=== PATIENT | female | born 1950 | race Caucasian/White ===

== ENCOUNTER 2016-05-19 00:48 | Emergency (ER) | payer MEDICARE ==
[2016-05-19] MEDS ORDERED: ACETAMINOPHEN 325 MG TABLET PO ONE (01:32)
[2016-05-19] MEDS ORDERED: cloNIDine HCL 0.1 MG TABLET PO ONE (01:32)
[2016-05-19 01:40] LABS: BASOPHIL# 0.1 X 10^3uL (0.0-0.1); EOSINOPHILS 3.4 % (0.0-6.0); EOSINOPHILS# 0.3 X 10^3uL (0.0-0.4); HEMOGLOBIN 13.4 g/dL (12.0-16.0); LYMPHOCYTES 23.1 % (20.0-40.0); LYMPHOCYTES# 1.8 X 10^3uL (0.8-3.8); MEAN CELL VOLUME 88.4 fL (80.0-100.0); MEAN CORPUS. HGB CONCENTRATION 33.4 g/dL (32.0-36.0); MEAN CORPUSCULAR HEMOGLOBIN 29.6 pg (29.0-35.0); MEAN PLATELET VOLUME 8.5 fL (7.4-10.4); MONOCYTES 12.5 % (2.0-10.0); NEUTROPHILS# 4.7 X 10^3uL (2.6-6.7); PLATELET COUNT 291 X 10^3uL (130-440); RED BLOOD COUNT 4.53 X 10^6uL (4.20-6.10); RED CELL DISTRIBUTION WIDTH 13.4 % (11.5-14.5); WHITE BLOOD COUNT 7.9 X 10^3uL (3.9-10.7)
[2016-05-19 01:42] LABS: BLOOD UREA NITROGEN 20 mg/dL (7-17); CALCIUM 10.2 mg/dL (8.4-10.2); CHLORIDE 105 mmol/L (98-107); CREATININE 0.8 mg/dL (0.5-1.0); EST GLOMERULAR FILTRATION RATE > 60 mL/min; GLUCOSE 103 mg/dL (70-100); POTASSIUM 3.8 mmol/L (3.5-5.1); SODIUM 141 mmol/L (137-145)
--- NOTE | 2016-05-19 02:02 | CT REPORT ---
INDICATION: Headache. History of kidney cancer. COMPARISON: None. TECHNIQUE: Helical axial images were obtained through the head and soft tissue and bone reconstructio ns were created. FINDINGS: There is a 1.5 x 1.5 cm hyperdense lesion in the posterior paramedian portion of the left p arietal lobe. There is extensive surrounding vasogenic edema within the white matter. There is rightw issac midline shift of 6 mm. There is no hydrocephalus. There is some low-attenuation white matter with in the periventricular and subcortical region the right posterior frontal and parietal lobes, nonspec ific. Basal cisterns are clear. Calvarium is intact. Imaged paranasal sinuses and mastoid air cells are clear. IMPRESSION: 1. Intraparenchymal hemorrhage in the left parietal lobe measuring 1.5 x 1.5 cm with extensive surrou nding vasogenic edema. Given the history of renal cell carcinoma, this is highly concerning for a hem orrhagic metastatic lesion. Further evaluation with an MRI of the brain with and without contrast is suggested. 2. Rightward midline shift of 6 mm. No hydrocephalus. Critical results were discussed with Dr. Stewart at 2:00 AM 05/19/2016. Final Electronic Signature: This report was electronically signed by Ahsan Ashby MD on 05/19/2016 2 :00 AM. [email or web address] /
[2016-05-19 02:09] LABS: ERYTHROCYTE SEDIMENTATION RATE 10 MM/HR (0-20)
[2016-05-19] MEDS ORDERED: NS IV ONE (02:31)
[2016-05-19] MEDS ORDERED: NICARDIPINE IV ONE (02:31)
[2016-05-19] MEDS ORDERED: DEXAMETHASONE 10 MG/ML VIAL ONE (02:41)
[2016-05-19] MEDS ORDERED: LORazepam 0.5 MG TABLET ONE (03:09)
--- NOTE | 2016-05-19 03:55 | ER NURSING DOCUMENTATION ---
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 She was seen by yue yesterday and prescribed Sumatriptan. Pt took that this evening and that did not help the headache. No photophobia. PT states she had renal carcinoma last August and her kidney was removed. Transition of care: Home. 00:57 Method Of Arrival: Walk In Triage Assessment: 01:01 Headache History: The patient has had previous headaches and this one is similar to previous episodes. General: Appears uncomfortable, Behavior is cooperative. Pain: Complains of pain in forehead, left hoahaoism, left base of the skull, right hoahaoism and right base of the skull Pain currently is 8 out of 10 on a pain scale. Quality of pain is described as pressure, Pain began 1 week ago Also complains of Sinus pressure and pressure on the back of her head. EENT: Oral mucosa is dry. Neuro: Level of Consciousness is awake, alert, obeys commands, Oriented to person, place, time, event. Neuro: Client Services Vice President are equal bilaterally Moves all extremities. Gait is steady, Speech is normal, Facial symmetry appears normal. Cardiovascular: Capillary refill < 3 seconds. Respiratory: Airway is patent. GI: Denies nausea. Derm: Skin is intact, is healthy with good turgor. Historical: - Allergies: Keflex; - Home Meds: 1. sumatriptan succinate 50 mg oral tab 1 tab once with fluids as early as possible after the onset of a migraine attack;may repeat after 2 hours if headache returns, not to exceed 200mg in 24hrs 2. Vitamin C 500 mg oral tab 3. irbesartan 150 mg oral tab 1 tab once daily 4. aspirin 81 mg oral tab 1 tab once daily 5. prednisone 10 mg oral tab once daily - PMHx: ACUTE SCIATICA; OSTEOARTHRITIS; HEMORRHOIDS; CONSTIPATION; Hypertension; MIGRAINES; THYROID GOITER; HYPERLIPIDEMIA; RENAL CARCINOMA; - PSHx: LEFT TOTAL NEPHRECTOMY 2016; LAMINECTOMY, LUMBAR; - Tetanus: < 10 years. - Ebola Screening: : Patient negative for fever greater than or equal to 101.5 degrees Fahrenheit, and additional compatible Ebola Virus Disease symptoms. - Immunization history: Flu Vaccine < 1 year. - Social history: Smoking status: Patient states was never smoker of tobacco. Screenin:03 Infectious Disease Risk None. Abuse screen: Denies threats or abuse. Denies injuries rh from another. Nutritional screening: No deficits noted. Assessment: 01:03 See Triage Assessment done by same RN. 02:00 Reassessment: HOB lowered to 20 degree angle. rh 03:08 Pain: Denies pain. Neuro: Level of Consciousness is awake, alert, obeys commands, rh Oriented to person, place, time, event, Speech is normal, Facial symmetry appears normal, Pupils are PERRLA. 03:22 Reassessment: PT's Jose will ride down in the ambulance and leave car at [facility]. PT's belongings going with. . Vital Signs: 01:00 BP 179 / 101; Pulse 90; Resp 17; Temp 97.6(O); Pulse Ox 94% on R/A; Weight 62.6 kg; rh Height 5 ft. 6 in. (167.64 cm); Pain 8/10; 01:30 BP 199 / 89; Pulse 101; Resp 16; Pulse Ox 95% on R/A; rh 02:05 BP 190 / 107; Pulse 98; Resp 16; Pulse Ox 96% on R/A; rh 02:46 BP 184 / 88; Pulse 105; Resp 17; Pulse Ox 95% on R/A; rh 03:04 BP 156 / 87; Pulse 104; Resp 18; Pulse Ox 96% on R/A; rh 03:11 BP 152 / 92; Pulse 102; Pulse Ox 96% on R/A; Pain 0/10; rh 03:15 BP 130 / 90; Pulse 102; Pulse Ox 95% on R/A; Pain 0/10; rh 03:38 BP 158 / 85; Pulse 101; Resp 16; Pulse Ox 95% on R/A; Pain 0/10; rh 01:00 Body Mass Index 22.27 (62.60 kg, 167.64 cm) rh [place] Coma Score: 01:00 Eye Response: spontaneous(4). Verbal Response: oriented(5). Motor Response: obeys rh commands(6). Total: 15. 02:00 Eye Response: spontaneous(4). Verbal Response: oriented(5). Motor Response: obeys rh commands(6). Total: 15. 02:44 Eye Response: spontaneous(4). Verbal Response: oriented(5). Motor Response: obeys cd commands(6). Total: 15. 02:47 Eye Response: spontaneous(4). Verbal Response: oriented(5). Motor Response: obeys cd commands(6). Total: 15. 03:00 Eye Response: spontaneous(4). Verbal Response: oriented(5). Motor Response: obeys rh commands(6). Total: 15. ED Course: 00:49 Patient arrived in ED. ma1 00:49 Kaity Liu MD is Private Physician. ma1 00:49 Alix Levin is Primary Nurse. rh 00:49 Triage completed. rh 00:55 Notified ED Physician of patient's arrival and chief complaint. Dr. Stewart notified. rh 01:03 Valuables Remains with patient Patient has correct armband on for positive rh identification. Bed in low position. Call light in reach. Side rails up X 1. Family accompanied patient. 01:08 Andrew Stewart MD is Attending Physician. cd 01:[address] hz 01:[address]. hz Administered Medications: 01:31 Drug: NS 0.9% 1000 ml; Route: IV; Rate: bolus; Site: right antecubital; fc 03:10 Follow up: IV Status: Completed infusion; IV Intake: 750ml rh 01:31 Drug: cloNIDine 0.1 mg; Route: PO; fc 02:01 Follow up: Response: No change in condition rh 01:31 Drug: Tylenol 975 mg; Route: PO; fc 02:01 Follow up: Response: Pain is decreased rh 02:40 Drug: Decadron 10 mg IVP - Dexamethasone 10 mg; Route: IVP; Site: right antecubital; rh 03:03 Follow up: Response: No adverse reaction rh 02:46 Drug: CardENE 5 mg/h; Route: IV; Rate: 5 calculated rate; Site: right antecubital; rh 03:03 Follow up: IV Status: Completed infusion rh 02:59 Drug: Ativan 0.5 mg; Route: PO; rh 03:13 Follow up: Response: Anxiety decreased rh 03:04 Drug: CardENE 2.5 mg/h; Route: IV; Rate: calculated rate; Site: right antecubital; rh 03:13 Follow up: IV Status: Completed infusion rh Intake: 03:10 IV: 750ml; Total: 750ml. rh Outcome: 02:55 ER care complete, transfer ordered by MD. rodriguez 03:54 Transferred: Patient will be transferred to: [facility]. Facility rh Acceptance Time: May 19, 2016 at 02:45 Patient's face sheet was faxed to accepting facility. Face Sheet included patient's name, address, age, gender, contact information and insurance information. Patient will be transported by: [facility] ground. Report called to: [facility] ROOM [id number] Nurse and Physician Charting and Notes were sent to Accepting Facility. All tests and/or procedures with results, if applicable, were sent to accepting facility. 03:54 Condition: stable 03:54 Discharge Assessment: Patient awake, alert and oriented x 3. No cognitive and/or functional deficits noted. Patient verbalized understanding of disposition instructions. 03:54 Instructed on need for transfer 03:55 Patient left the ED. Signatures: Andrew Stewart MD MD cd Hofsess, Rachel rh collins, floyd fc Zolnowski, Heather hz Addison, Melissa ma1
--- NOTE | 2016-05-19 03:55 | ER PHYSICIAN DOCUMENTATION ---
Physician Documentation [facility] Name:Trang Aguilar Age:66 yrs Sex:Female :1950 Arrival Date:05/19/2016 Time:00:48 Bed1 Private MD:Kaity Liu ED, Chris Disposition: 05/19/16 02:55 Transfer ordered to [facility]. Diagnosis are Intracranial Bleed: Intracerebral - : 2nd to Brain Metastasis, Cephalgia. - Reason for transfer: Specialty. - Accepting physician is Dr. Andrew Michelle MD, [facility] Neurologist. - Condition is Serious. - Problem is new. - Symptoms have improved. COBRA Form completed? Yes Transfer - Mode of Transportation Ambulance HPI: 05/19 01:00 This 66 yrs old Female presents to ER via Walk In with complaints of Headache.cd 01:00 The patient complains of pain to the forehead, left ear, right voodoo, left voodoo, cd left occipital area and left base of the skull. The patient describes the headache as constant, a pressure, unrelenting. Onset: The symptoms/episode began/occurred gradually, 1 month(s) ago, and became worse 7 day(s) ago. Associated signs and symptoms: Pertinent positives: cervical muscle pain, Pertinent negatives: altered mental status, dizziness, fever, nausea, sinus congestion, sinus tenderness, vision changes, vision loss, vomiting. Severity of symptoms: At its worst the pain was moderate, in the emergency department the pain is unchanged. Headache History: The patient has had previous headaches and this one is different than previous episodes. Risk factors for subarachnoid hemhorrage: hypertension. The patient has been recently seen by a physician: the patient's primary care provider, Dr. Liu, Internal Medicine, an lead generator, at a clinic, yesterday, with similar presenting complaints, and apparently given a diagnosis of Possible Migraine Headache. Given Imitrex which the patient took twice this evening two hours apart and it made the patient's headache worse. 02:37 The patient has a history of Stage IV Renal Cancer and underwent a Left Nephrectomy in cd August 2015. Her last CT Scan was in February 2016 of her chest and abdomen and was negative for cancer. She has not had a recent CT of the Brain.. Historical: - Allergies: Keflex; - Home Meds: 1. sumatriptan succinate 50 mg oral tab 1 tab once with fluids as early as possible after the onset of a migraine attack;may repeat after 2 hours if headache returns, not to exceed 200mg in 24hrs 2. Vitamin C 500 mg oral tab 3. irbesartan 150 mg oral tab 1 tab once daily 4. aspirin 81 mg oral tab 1 tab once daily 5. prednisone 10 mg oral tab once daily - PMHx: ACUTE SCIATICA; OSTEOARTHRITIS; HEMORRHOIDS; CONSTIPATION; Hypertension; MIGRAINES; THYROID GOITER; HYPERLIPIDEMIA; RENAL CARCINOMA; - PSHx: LEFT TOTAL NEPHRECTOMY 2016; LAMINECTOMY, LUMBAR; - Tetanus: < 10 years. - Ebola Screening: : Patient negative for fever greater than or equal to 101.5 degrees Fahrenheit, and additional compatible Ebola Virus Disease symptoms. - Immunization history: Flu Vaccine < 1 year. - Social history: Smoking status: Patient states was never smoker of tobacco. ROS: 02:40 Eyes: Negative for injury, pain, redness, discharge, blurry vision and loss of vision. cd Cardiovascular: Negative for chest pain, palpitations, edema and pleuritic pain. Respiratory: Negative for shortness of breath, dyspnea on exertion, cough, sputum production, wheezing, hemoptysis and pleuritic chest pain. Abdomen/GI: Negative for abdominal pain, nausea, vomiting, diarrhea, constipation, distension, melena, hematochezia and hematemesis. Back: Negative for injury, pain or muscle spasms. : Negative for injury, bleeding, discharge, dysuria, frequency, urgency and swelling. MS/Extremity: Negative for injury, deformity, edema, calf tenderness, pain or coldness. 02:40 Skin: Negative for injury, rash, itching and discoloration. cd 02:40 Constitutional: Positive for poor PO intake, Negative for chills, fever. 02:40 ENT: Positive for sinus congestion, Negative for sinus pain, sore throat. 02:40 Neck: Positive for pain at rest, Negative for stiffness, swelling. 02:40 Neuro: Positive for headache, Negative for altered mental status, dizziness, gait disturbance, hearing loss, numbness, seizure activity, speech changes, syncope, near syncope, tingling, visual changes, weakness. 02:40 All other systems are negative. Exam: 02:41 Eyes: Pupils: equal, round, and reactive to light and accomodation, Extraocular cd movements: intact throughout, Conjunctiva: normal. 02:41 ENT: TM's: are normal, Nose: is normal, Mouth: is normal, Posterior pharynx: is normal, Voice: is normal. Chest/axilla: Normal chest wall appearance and motion. Nontender with no deformity. No lesions are appreciated. Cardiovascular: Regular rate and rhythm with a normal S1 and S2. No gallops, murmurs, or rubs. Normal PMI, no JVD. No pulse deficits. Respiratory: Lungs have equal breath sounds bilaterally, clear to auscultation and percussion. No rales, rhonchi or wheezes noted. No increased work of breathing, no retractions or nasal flaring. Abdomen/GI: Soft, non-tender, with normal bowel sounds. No distension or tympany. No guarding or rebound. No evidence of tenderness throughout. Back: No spinal tenderness. No costovertebral tenderness. Full range of motion. Skin: Warm, dry with normal turgor. Normal color with no rashes, no lesions, and no evidence of cellulitis. 02:44 MS/ Extremity: Pulses equal, no cyanosis. Neurovascular intact. Full, normal range cd of motion. 02:44 Constitutional: The patient appears alert, awake, non-diaphoretic, non-toxic, well developed, well nourished, anxious, in obvious distress, moderately distressed. 02:44 Head/face: Basilar skull fracture findings: the patient does not have obvious signs of a basilar skull fracture, no Holly signs, no hemotympanum, no nasal drainage, no racoon eyes, Sinus tenderness, is not appreciated. 02:44 Neck: External neck: tenderness, that is mild, of the left mid cervical area, right mid cervical area, left trapezius and right trapezius, ROM/movement: is normal, is supple. 02:44 Neuro: Orientation: is normal, to person, place & time. Mentation: is normal, lucid, Memory: is normal, Cranial nerves: CN II- XII are normal as tested, Cerebellar function: unable to test, Right knee with arthritis, Motor: moves all fours, strength is 5/5 in all extremities, Sensation: is normal, no acute changes, Gait: is steady, seizure activity, is not displayed by the patient. Vital Signs: 01:00 BP 179 / 101; Pulse 90; Resp 17; Temp 97.6(O); Pulse Ox 94% on R/A; Weight 62.6 kg; rh Height 5 ft. 6 in. (167.64 cm); Pain 8/10; 01:30 BP 199 / 89; Pulse 101; Resp 16; Pulse Ox 95% on R/A; rh 02:05 BP 190 / 107; Pulse 98; Resp 16; Pulse Ox 96% on R/A; rh 02:46 BP 184 / 88; Pulse 105; Resp 17; Pulse Ox 95% on R/A; rh 03:04 BP 156 / 87; Pulse 104; Resp 18; Pulse Ox 96% on R/A; rh 03:11 BP 152 / 92; Pulse 102; Pulse Ox 96% on R/A; Pain 0/10; rh 03:15 BP 130 / 90; Pulse 102; Pulse Ox 95% on R/A; Pain 0/10; rh 03:38 BP 158 / 85; Pulse 101; Resp 16; Pulse Ox 95% on R/A; Pain 0/10; rh 01:00 Body Mass Index 22.27 (62.60 kg, 167.64 cm) rh [place] Coma Score: 01:00 Eye Response: spontaneous(4). Verbal Response: oriented(5). Motor Response: obeys commands(6). Total: 15. 02:00 Eye Response: spontaneous(4). Verbal Response: oriented(5). Motor Response: obeys commands(6). Total: 15. 02:44 Eye Response: spontaneous(4). Verbal Response: oriented(5). Motor Response: obeys commands(6). Total: 15. 02:47 Eye Response: spontaneous(4). Verbal Response: oriented(5). Motor Response: obeys cd commands(6). Total: 15. 03:00 Eye Response: spontaneous(4). Verbal Response: oriented(5). Motor Response: obeys commands(6). Total: 15. MDM: 01:08 Patient medically screened. cd 01:15 Differential diagnosis: cluster headache, hypertensive headache, intracerebral cd hemorrhage, meningitis, migraine, neoplasm, sinusitis, subarachnoid bleed, temporal arteritis, tension headache, vasomotor headache. Data interpreted: Pulse oximetry: on room air is 95 %. Interpretation: normal. 02:20 Data reviewed: vital signs, nurses notes, old medical records, lab test result(s), CBC, cd electrolytes, ESR, radiologic studies, CT scan, and as a result, I will *Transfer Patient initiate a consult, from a [facility] Neurologist, administer steroids, Decadron, Start Cardene IVPB for Hypertension Control to Systolic in the 160's. 02:42 Response to treatment: the patient's symptoms have mildly improved after treatment. cd Physician consultation: Andrew Michelle MD [facility] Neurologist was called at 02:30, was contacted at 02:38, regarding admission, to the ICU, consult, patient's condition, need to evaluate the patient as soon as possible, and will see patient in unit, shortly, later today, after a discussion of the case, a recommendation for transfer for higher level of care is made. 02:47 Neurological re-evaluation: normal neurological exam including cranial nerves, cd orientation, mentation, motor and sensory exam, cerebellar testing, GCS normal, and normal gait. 02:50 Counseling: I had a detailed discussion with the patient and/or guardian regarding: the cd historical points, exam findings, and any diagnostic results supporting the discharge/admit diagnosis, lab results, radiology results, the need to transfer to another facility, for higher level of care, [facility] does not immediately have the required specialist. 05/19 01:44 Order name: BASIC METABOLIC PANEL; Complete Time: 02:31 EDMS 05/19 02:29 Interpretation: Normal. 05/19 01:46 Order name: CBC AUTO DIF, MDIF/RMOR IF IND; Complete Time: 02:31 EDMS 05/19 02:29 Interpretation: Normal. 05/19 02:10 Order name: ERYTHROCYTE SEDIMENTATION RATE; Complete Time: 02:31 EDMS 05/19 02:31 Interpretation: Normal. 05/19 02:05 Order name: CAT SCAN; HEAD W/O CON [id number]; Complete Time: 02:31 EDMS 05/19 02:31 Interpretation: Abnormal: Hemorrhagic Brain mass / metastases with significant edema cd and 6 mm midline shift. See Report. Dispensed Medications: :31 Drug: NS 0.9% 1000 ml; Route: IV; Rate: bolus; Site: right antecubital; fc 03:10 Follow up: IV Status: Completed infusion; IV Intake: 750ml rh :31 Drug: cloNIDine 0.1 mg; Route: PO; 02:01 Follow up: Response: No change in condition rh 01:31 Drug: Tylenol 975 mg; Route: PO; fc 02:01 Follow up: Response: Pain is decreased rh 02:40 Drug: Decadron 10 mg IVP - Dexamethasone 10 mg; Route: IVP; Site: right antecubital; rh 03:03 Follow up: Response: No adverse reaction rh 02:46 Drug: CardENE 5 mg/h; Route: IV; Rate: 5 calculated rate; Site: right antecubital; rh 03:03 Follow up: IV Status: Completed infusion rh 02:59 Drug: Ativan 0.5 mg; Route: PO; rh 03:13 Follow up: Response: Anxiety decreased rh 03:04 Drug: CardENE 2.5 mg/h; Route: IV; Rate: calculated rate; Site: right antecubital; rh 03:13 Follow up: IV Status: Completed infusion rh Signatures: Andrew Stewart MD MD cd Hofsess, Rachel alberto jones
== END 2016-05-19 03:55 | disposition short-term general hospital (02) ==
LOC: ER 00:48
DX: I61.9 Nontraumatic intracerebral hemorrhage, unspecified (principal); C79.31 Secondary malignant neoplasm of brain; R51 Headache; M54.2 Cervicalgia; I10 Essential (primary) hypertension; R40.2413 Glasgow coma scale score 13-15, at hospital admission; Z85.528 Personal history of other malignant neoplasm of kidney; J34.89 Other specified disorders of nose and nasal sinuses; Z79.899 Other long term (current) drug therapy; Z99.89 Dependence on other enabling machines and devices; Z74.3 Need for continuous supervision
CPT/HCPCS: 70450; 80048; 85025; 85651; 86140; 99285; A0425; A0427; J1100

== ENCOUNTER 2016-08-13 00:20 | Emergency (ER) | payer MEDICARE ==
[2016-08-13] MEDS ORDERED: LORazepam 1 MG TABLET ONE (00:51)
--- NOTE | 2016-08-13 00:56 | CT REPORT ---
HISTORY: Dizziness, history of brain cancer COMPARISON: None. TECHNIQUE: Axial non-contrast images obtained from skull vertex through foramen magnum. Dose reduction technique was utilized. FINDINGS: There is some encephalomalacia and postsurgical changes in the left parieto-occipital region likely r eflecting postsurgical changes from prior mass resection. There is age appropriate atrophy. There is decreased attenuation in the periventricular white matter , consistent with chronic small vessel ischemic change. There is no hemorrhage. There is no hydroce phalus. No mass lesion is identified. Saravia white differentiation adequate, there is no CT evidence of acute infarction. No midline shift is identified. The paranasal sinuses are clear. There are durga nges from prior left posterior parietal bone craniotomy. IMPRESSION: 1. Age appropriate atrophy and chronic small vessel ischemic changes, no acute intracranial abnormal ity. 2. Postsurgical changes in the left parieto-occipital region from prior tumor resection. 3. If there is clinical concern for residual tumor, consider further evaluation with MRI or contrast -enhanced CT head. COMMUNICATION: Dr. Halima Weiss discussed the pertinent results with Dr. Ayala 04/2016 12:54 AM. Write down read b ack confirmed as per hospital policy. Final Electronic Signature: This report was electronically signed by Nikita Weiss MD on 12:54 AM. [email or web address] /
--- NOTE | 2016-08-13 01:18 | ER NURSING DOCUMENTATION ---
Nurse's Notes [facility] Name:Trang Aguilar Age:66 yrs Sex:Female :1950 Arrival Date:08/13/2016 Time:00:20 Bed1 Private MD: Diagnosis:Anxiety Reaction;Hypertension;Insomnia Presentation: 08/13 00:28 Presenting complaint: Patient states: pt states she has dizziness x 1 hour. states she bw2 now wants a "brain scan". Transition of care: patient was not received from another setting of care. 00:28 Method Of Arrival: Walk In [facility] 00:28 Acuity: JACKSON 3 bw2 Triage Assessment: 00:30 General: Appears in no apparent distress, Behavior is agitated, anxious, restless. bw2 Pain: Denies pain. Respiratory: No deficits noted. GI: No deficits noted. Historical: - Allergies: Keflex; - Home Meds: 1. sumatriptan succinate 50 mg oral tab 1 tab once with fluids as early as possible after the onset of a migraine attack;may repeat after 2 hours if headache returns, not to exceed 200mg in 24hrs 2. Vitamin C 500 mg oral tab 3. irbesartan 150 mg oral tab 1 tab once daily 4. aspirin 81 mg oral tab 1 tab once daily 5. prednisone 10 mg oral tab once daily - PMHx: ACUTE SCIATICA; OSTEOARTHRITIS; HEMORRHOIDS; RENAL CARCINOMA; - Tetanus: < 10 years. - Ebola Screening: : Patient negative for fever greater than or equal to 101.5 degrees Fahrenheit, and additional compatible Ebola Virus Disease symptoms. Patient denies exposure to infectious person. Patient denies travel to an Ebola-affected area in the 21 days before illness onset. No symptoms or risks identified at this time. . - Immunization history: Vaccine Information Sheet provided Flu Vaccine None. - Social history: Smoking status: Patient states was never smoker of tobacco. - Unable to obtain history due to: pt states that all her information is in computer, pt refuseds to answer what her allergies are and her medications. pt states that all her information is in the comupter. Screenin:31 Infectious Disease Risk None. Abuse screen: Denies threats or abuse. Nutritional bw2 screening: No deficits noted. Assessment: 00:31 See Triage Assessment done by same RN. bw2 00:36 See Triage Assessment done by same RN. See Triage Assessment done by same RN. bw2 Vital Signs: 00:21 BP 142 / 114 LA Sitting (auto/reg); Pulse 95 RA; Resp 28 S; Temp 97.9(O); Pulse Ox 95% em3 on R/A; Weight 62.6 kg; Height 5 ft. 5 in. (165.10 cm) (R); Pain 0/10; 01:01 BP 171 / 93; Pulse 80; Resp 18; Pulse Ox 96% ; Pain 0/10; bw2 00:21 Body Mass Index 22.96 (62.60 kg, 165.10 cm) em3 ED Course: 00:21 Patient arrived in ED. em3 00:21 Mora Hillman is Primary Nurse. bw2 00:23 Valuables Remains with patient Patient has correct armband on for positive em3 identification. Bed in low position. Call light in reach. Side rails up X 1. 00:28 Rajeev Ayala MD is Attending Physician. ga 00:29 Triage completed. bw2 00:[address] dorcas 00:[address] Patient moved back from [address]. [place]cas 00:55 Kaity Liu MD is Referral Physician. sc Administered Medications: 00:39 Drug: Ativan 1 mg; Route: PO; bw2 01:00 Follow up: Response: No adverse reaction bw2 Outcome: 00:56 Discharge ordered by . ga 01:01 Discharged to home via wheelchair, with significant other. bw2 01:01 Condition: good 01:01 Discharge Assessment: Patient awake, alert and oriented x 3. No cognitive and/or functional deficits noted. Patient verbalized understanding of disposition instructions. 01:17 Discharge instructions given to patient, significant other, Instructed on discharge [facility] instructions, follow up and referral plans. Demonstrated understanding of instructions. 01:18 Patient left the ED. bw2 06 16:15 Discharge F/U Call: Spoke with: patient. Are you having any pain? How are you cb managing your pain? Have you filled your prescriptions? n/a Did your discharge instructions answer all of your questions? yes Have you made a f/u appointment? yes Signatures: Eleonora Person, RN RN Rajeev Mayer MD MD ga Johana Andino Eric em3 Mora Hillman bw2
--- NOTE | 2016-08-13 01:18 | ER PHYSICIAN DOCUMENTATION ---
Physician Documentation [facility] Name:Trang Aguilar Age:66 yrs Sex:Female :1950 Arrival Date:08/13/2016 Time:00:20 Bed1 Private MD: Rajeev Barton Disposition: 08/13/16 00:56 Discharged to Home/Self Care. Impression: Anxiety Reaction, Hypertension, Insomnia. - Condition is Good. - Discharge Instructions: HYPERTENSION, Established, Out of Control, INSOMNIA, Anxiety Disorder - PANIC ATTACK. - Medical Reconciliation form form. - Follow up: Kaity Liu MD; When: As needed; Reason: Continuance of care. - Problem is an ongoing problem. - Symptoms have improved. HPI: 08/13 00:48 This 66 yrs old Female presents to ER via Walk In with complaints of sc Dizziness. 00:48 The patient presents with lightheadedness. Onset: The symptom(s)/episode began/occurred sc 1 week(s) ago. Associated signs and symptoms: Pertinent positives: agitation, headache, insomnia. Patient's baseline: Neuro: alert and fully oriented. The patient has experienced similar episodes in the past, chronically. The patient has been recently seen by a physician: the patient's primary care provider, yesterday, 3 day(s) ago, with similar presenting complaints. Long visits and discussions with Dr. Liu and Dr. Davila per clinic notes about same subjects patient brings up here. Anxiety, depression, worry about PET scans and recent cancer and future treatment. Patient has declined physicians plans previously regarding counseling, antidepressant use, benzos etc.. Historical: - Allergies: Keflex; - Home Meds: 1. sumatriptan succinate 50 mg oral tab 1 tab once with fluids as early as possible after the onset of a migraine attack;may repeat after 2 hours if headache returns, not to exceed 200mg in 24hrs 2. Vitamin C 500 mg oral tab 3. irbesartan 150 mg oral tab 1 tab once daily 4. aspirin 81 mg oral tab 1 tab once daily 5. prednisone 10 mg oral tab once daily - PMHx: ACUTE SCIATICA; OSTEOARTHRITIS; HEMORRHOIDS; RENAL CARCINOMA; - Tetanus: < 10 years. - Ebola Screening: : Patient negative for fever greater than or equal to 101.5 degrees Fahrenheit, and additional compatible Ebola Virus Disease symptoms. Patient denies exposure to infectious person. Patient denies travel to an Ebola-affected area in the 21 days before illness onset. No symptoms or risks identified at this time. . - Immunization history: Vaccine Information Sheet provided Flu Vaccine None. - Social history: Smoking status: Patient states was never smoker of tobacco. - Unable to obtain history due to: pt states that all her information is in computer, pt refuseds to answer what her allergies are and her medications. pt states that all her information is in the comupter. ROS: 00:52 Constitutional: Negative for fever, chills, and weight loss. sc Eyes: Negative for injury, pain, redness, and discharge. ENT: Negative for injury, pain, and discharge. Neck: Negative for injury, pain, and swelling. Cardiovascular: Negative for chest pain, palpitations, and edema. Respiratory: Negative for shortness of breath, cough, wheezing, and pleuritic chest pain. Abdomen/GI: Negative for abdominal pain, nausea, vomiting, diarrhea, and constipation. Back: Negative for injury and pain. MS/Extremity: Negative for injury and deformity. Skin: Negative for injury, rash, and discoloration. 00:52 Psych: Negative for depression, anxiety, suicide ideation, homicidal ideation, and sc hallucinations. 00:52 Neuro: Positive for dizziness, Negative for altered mental status, gait disturbance, loss of consciousness, visual changes, weakness. Exam: Constitutional: This is a well developed, well nourished patient who is awake, alert, and in no acute distress. Head/Face: Normocephalic, atraumatic. Eyes: Pupils equal round and reactive to light, extra-ocular motions intact. Lids and lashes normal. Conjunctiva and sclera are non-icteric and not injected. Cornea within normal limits. Periorbital areas with no swelling, redness, or edema. ENT: Nares patent. No nasal discharge, no septal abnormalities noted. Tympanic membranes are normal and external auditory canals are clear. Oropharynx with no redness, swelling, or masses, exudates, or evidence of obstruction, uvula midline. Mucous membranes moist. Neck: Trachea midline, no thyromegaly or masses palpated, and no cervical lymphadenopathy. Supple, full range of motion without nuchal rigidity, or vertebral point tenderness. No meningismus. Chest/axilla: Normal chest wall appearance and motion. Nontender with no deformity. No lesions are appreciated. Cardiovascular: Regular rate and rhythm with a normal S1 and S2. No gallops, murmurs, or rubs. Normal PMI, no JVD. No pulse deficits. Respiratory: Lungs have equal breath sounds bilaterally, clear to auscultation and percussion. No rales, rhonchi or wheezes noted. No increased work of breathing, no retractions or nasal flaring. Abdomen/GI: Soft, non-tender, with normal bowel sounds. No distension or tympany. No guarding or rebound. No evidence of tenderness throughout. Back: No spinal tenderness. No costovertebral tenderness. Full range of motion. Skin: Warm, dry with normal turgor. Normal color with no rashes, no lesions, and no evidence of cellulitis. MS/ Extremity: Pulses equal, no cyanosis. Neurovascular intact. Full, normal range of motion, negative Homans's, calves equal bilaterally. 00:53 Neuro: Awake and alert, GCS 15, oriented to person, place, time, and situation. sc Cranial nerves II-XII grossly intact. Motor strength 5/5 in all extremities. Sensory grossly intact. Cerebellar exam normal. Normal gait. 00:53 Neuro: Orientation: is normal, Cerebellar function: is grossly normal, Gait: is steady. 00:53 Psych: Behavior/mood is anxious, Affect is animated, Oriented to person, place, time, Patient has no thoughts/intents to harm self or others. Judgement / Insight is impaired. Vital Signs: 00:21 BP 142 / 114 LA Sitting (auto/reg); Pulse 95 RA; Resp 28 S; Temp 97.9(O); Pulse Ox 95% em3 on R/A; Weight 62.6 kg; Height 5 ft. 5 in. (165.10 cm) (R); Pain 0/10; 01:01 BP 171 / 93; Pulse 80; Resp 18; Pulse Ox 96% ; Pain 0/10; bw2 00:21 Body Mass Index 22.96 (62.60 kg, 165.10 cm) em3 MDM: 00:28 Patient medically screened. sc 00:54 Differential diagnosis: CVA, generalized weakness, idiopathic dizziness, vertigo. Data sc reviewed: vital signs, nurses notes, old medical records, radiologic studies, CT scan, and as a result, I will continue to observe the patient. Counseling: I had a detailed discussion with the patient and/or guardian regarding: the historical points, exam findings, and any diagnostic results supporting the discharge/admit diagnosis, radiology results, the need for outpatient follow up, to return to the emergency department if symptoms worsen or persist or if there are any questions or concerns that arise at home. 00:57 Counseling: I had a detailed discussion with the patient and/or guardian regarding: sc Repeated discussions re: mets, htn, insomnia, anxiety and hyperventilation. 08/13 00:59 Order name: CAT SCAN; HEAD W/O CON [id number] EDMS Dispensed Medications: 00:39 Drug: Ativan 1 mg; Route: PO; bw2 01:00 Follow up: Response: No adverse reaction bw2 Signatures: Rajeev Ayala MD MD va Mora Hillman bw2
== END 2016-08-13 01:18 | disposition home or self-care (01) ==
LOC: ER 00:20
DX: F41.9 Anxiety disorder, unspecified (principal); I10 Essential (primary) hypertension; G47.00 Insomnia, unspecified; R42 Dizziness and giddiness; C64.9 Malignant neoplasm of unspecified kidney, except renal pelvis; Z79.899 Other long term (current) drug therapy
CPT/HCPCS: 70450; 99284

== ENCOUNTER 2016-09-23 03:42 | Emergency (ER) | payer MEDICARE ==
[2016-09-23] MEDS ORDERED: LORazepam 1 MG TABLET ONE (04:36)
--- NOTE | 2016-09-23 04:47 | ER PHYSICIAN DOCUMENTATION ---
Physician Documentation [facility] Name:Trang Aguilar Age:66 yrs Sex:Female :1950 Arrival Date:09/23/2016 Time:03:42 Bed1 Private MD:Kaity Liu EDCarmenStuart Disposition: 09/23 04:40 Chart complete. tl1 Disposition: 09/23/16 04:22 Discharged to Home/Self Care. Impression: Insomnia. - Condition is Good. - Discharge Instructions: INSOMNIA. - Prescriptions for Ativan 0.5 mg Oral Tablet - take 1 tablet by ORAL route every 8 hours As needed; 20 tablet. - Medical Reconciliation form form. - Follow up: Kaity Liu MD; When: 2 - 3 days; Reason: Recheck today's complaints, Continuance of care. - Problem is new. - Symptoms are unchanged. HPI: 04:21 This 66 yrs old Female presents to ER via Walk In with complaints of tl1 Insomnia, HOT-COLD SWEATS, buzzing . 04:21 . tl1 04:27 [place]ut 3 weeks ago she was treated with trazodone for insomnia. She has gradually tl1 increased from 25 mg QHS to 75 MG QHS, but says she has not taken it consistently. She stopped taking it 2 nights ago because she says it was not working, and since then she has not been able to sleep and is anxious, agitated, and has a buzzing sensation in he rhead. She comes in now at 4 AM with her , seeking relief. She denies other changes in her medications.. Historical: - Allergies: Keflex; - Home Meds: 1. sumatriptan succinate 50 mg oral tab 1 tab once with fluids as early as possible after the onset of a migraine attack;may repeat after 2 hours if headache returns, not to exceed 200mg in 24hrs 2. Vitamin C 500 mg oral tab 3. irbesartan 150 mg oral tab 1 tab once daily 4. aspirin 81 mg oral tab 1 tab once daily 5. prednisone 10 mg oral tab once daily - PMHx: OSTEOARTHRITIS; Anxiety Reaction (August 13, 2016); Hypertension (August 13, 2016); Insomnia (August 13, 2016); - Tetanus: < 10 years. - Ebola Screening: : No symptoms or risks identified at this time. . - Immunization history: Unable to Obtain. - Social history: Smoking status: Patient states was never smoker of tobacco. ROS: 04:31 Constitutional: Positive for fatigue, malaise. tl1 04:31 Cardiovascular: Negative for chest pain, palpitations, paroxysmal nocturnal dyspnea. 04:31 Respiratory: Negative for cough, dyspnea on exertion, sputum production, wheezing. 04:31 Abdomen/GI: Positive for nausea, Negative for abdominal pain, vomiting, diarrhea. 04:31 Psych: Positive for anxiety, insomnia, Negative for auditory hallucinations, visual hallucinations. 04:31 All other systems are negative. Exam: 04:33 Head/Face: Normocephalic, atraumatic. tl1 04:33 Constitutional: The patient appears alert, awake, non-diaphoretic, non-toxic, well developed, well groomed, well nourished, anxious, in obvious distress, mildly distressed, restless, uncomfortable. 04:33 Neck: ROM/movement: is normal, is supple. 04:33 Cardiovascular: Rate: normal. 04:33 Respiratory: Respirations: normal, no acute changes. 04:33 Skin: Exam negative for acute changes. 04:33 Neuro: Orientation: is normal, Mentation: is normal, Memory: is normal, Motor: moves all fours. 04:33 Psych: Behavior/mood is pleasant, cooperative, anxious, Affect is animated, Patient has no thoughts/intents to harm self or others. Judgement / Insight is normal. Memory is normal. Delusions/hallucinations are not present. Vital Signs: 04:09 BP 148 / 86; Pulse 84; Resp 15; Temp 98.7; Pulse Ox 95% ; Weight 65.77 kg; Height 5 ft. mk4 6 in. (167.64 cm); Pain 0/10; 04:09 Body Mass Index 23.40 (65.77 kg, 167.64 cm) mk4 MDM: 04:20 Patient medically screened. tl1 04:35 Data reviewed: vital signs, nurses notes, and as a result, I will discharge patient. tl1 Counseling: I had a detailed discussion with the patient and/or guardian regarding: the historical points, exam findings, and any diagnostic results supporting the discharge/admit diagnosis, the need for outpatient follow up, to return to the emergency department if symptoms worsen or persist or if there are any questions or concerns that arise at home. ED course: I told her she can stop the trazodone, if she wants but that she could have symptoms of fatigue, nausea, agitation, anxiety, dysphoria, insomnia, and others. Ativan could help with some of these. She was given 1 mg of ativan in the ED. I gave her a prescription for 0.5 mg tabs that she could take up to 3 times a day for anxiety, and up to 3 tabs at night to help her sleep for the next FEW days. I told her to F/U for sure in [address] scheduled [address] Dr Liu, and sooner if possible. If these potential trazodone withdrawal symptoms do not fade, she may need a more structured taper off of the trazodone.. Dispensed Medications: 04:44 Drug: Ativan 1 mg; Route: PO; mk4 04:44 Follow up: Response: No adverse reaction mk4 Signatures: Livia Zamora mk4 Stuart Morales MD MD tl1
--- NOTE | 2016-09-23 04:47 | ER NURSING DOCUMENTATION ---
Nurse's Notes [facility] Name:Trang Aguilar Age:66 yrs Sex:Female :1950 Arrival Date:09/23/2016 Time:03:42 Bed1 Private MD:Kaity Liu Diagnosis:Insomnia Presentation: 09/23 04:05 Presenting complaint: Patient states: Stopped taking trazadone 3 days ago. Feels like [facility] is going through withdraw. Transition of care: Home. 04:05 Method Of Arrival: Walk In [facility] 04:05 Acuity: JACKSON 4 [facility] Triage Assessment: 04:08 General: Appears distressed, Behavior is agitated, anxious. Pain: Denies pain. Neuro: [facility] Level of Consciousness is awake, Oriented to person, place, time, [employer] are equal bilaterally Moves all extremities. Speech is normal, Pupils are PERRLA. Cardiovascular: Chest pain is denied. Respiratory: Airway is patent Respiratory effort is even, unlabored. GI: No deficits noted. 04:10 GI:. [facility] Historical: - Allergies: Keflex; - Home Meds: 1. sumatriptan succinate 50 mg oral tab 1 tab once with fluids as early as possible after the onset of a migraine attack;may repeat after 2 hours if headache returns, not to exceed 200mg in 24hrs 2. Vitamin C 500 mg oral tab 3. irbesartan 150 mg oral tab 1 tab once daily 4. aspirin 81 mg oral tab 1 tab once daily 5. prednisone 10 mg oral tab once daily - PMHx: OSTEOARTHRITIS; Anxiety Reaction (August 13, 2016); Hypertension (August 13, 2016); Insomnia (August 13, 2016); - Tetanus: < 10 years. - Ebola Screening: : No symptoms or risks identified at this time. . - Immunization history: Unable to Obtain. - Social history: Smoking status: Patient states was never smoker of tobacco. Screenin:10 Infectious Disease Risk None. Abuse screen: Denies threats or abuse. Nutritional [facility] screening: No deficits noted. Assessment: 04:10 See Triage Assessment done by same RN. [facility] Vital Signs: 04:09 BP 148 / 86; Pulse 84; Resp 15; Temp 98.7; Pulse Ox 95% ; Weight 65.77 kg; Height 5 ft. mk4 6 in. (167.64 cm); Pain 0/10; 04:09 Body Mass Index 23.40 (65.77 kg, 167.64 cm) 4 ED Course: 03:43 Patient arrived in ED. ma1 03:44 Kaity Liu MD is Private Physician. ma1 04:05 Livia Zamora is Primary Nurse. 4 04:06 Triage completed. mk4 04:[address] Morales notified. Arm band placed on Bed in low position Call 4 Light in Reach Side rails up x2. Family accompanied patient. 04:10 Valuables Remains with patient. mk4 04:20 Stuart Morales MD is Attending Physician. tl1 04:22 Kaity Liu MD is Referral Physician. tl1 Administered Medications: 04:44 Drug: Ativan 1 mg; Route: PO; 4 04:44 Follow up: Response: No adverse reaction 4 Outcome: 04:22 Discharge ordered by . tl1 04:45 Discharged to home ambulatory. 4 04:45 Condition: good 04:45 Discharge Assessment: Patient awake, alert and oriented x 3. No cognitive and/or functional deficits noted. Patient verbalized understanding of disposition instructions. 04:45 Instructed on discharge instructions, follow up and referral plans. medication usage, Demonstrated understanding of Prescriptions given X 1. 04:46 Patient left the ED. [facility] 07 10:34 Discharge F/U Call: Spoke with: patient. Have you filled your prescriptions? yes. Signatures: Sheryl Vega RN RN lp King, Melody [facility] Stuart Morales MD MD 1 Radha Alas [facility]
== END 2016-09-23 04:47 | disposition home or self-care (01) ==
LOC: ER 03:42
DX: G47.00 Insomnia, unspecified (principal); R53.83 Other fatigue; R53.81 Other malaise; R11.0 Nausea; T43.216A Underdosing of selective serotonin and norepinephrine reuptake inhibitors, initial encounter; I10 Essential (primary) hypertension; Z79.899 Other long term (current) drug therapy
CPT/HCPCS: 99283